=== PATIENT | male | born 1950 | race Caucasian/White ===

== ENCOUNTER 2017-02-20 22:51 | Inpatient (IN) | payer MEDICARE, OTHER ==
[2017-02-20] MEDS ORDERED: ONDANSETRON HCL/PF 4 MG/ 2ML VIAL IVP ONE (23:20)
[2017-02-20] MEDS ORDERED: FOLIC ACID 5 MG/1 ML ONE (23:21)
[2017-02-20] MEDS ORDERED: 0.9 % SODIUM CHLORIDE 1,000 ML IV ONE (23:21)
[2017-02-20] MEDS ORDERED: MVI, ADULT NO.1 WITH VIT K 10 ML VIAL IV ONE (23:21)
[2017-02-20] MEDS ORDERED: THIAMINE HCL 100 MG/ML 2ML VIAL ONE (23:21)
[2017-02-20] MEDS ORDERED: THIAMINE HCL 100 MG, MVI, ADULT NO.1 WITH VIT K 10 ML, FOLIC ACID 5 MG in 0.9 % SODIUM ... IV ONE ×4 (23:22)
[2017-02-20] MEDS ORDERED: HYDROmorphone HCL/PF 1 MG/ML DISP.SYRIN IVP ONE (23:23)
[2017-02-20 23:37] LABS: BASOPHILS % 0.6 (0.0-1.5); MEAN CORPUSCULAR HEMOGLOBIN 31.3 pg (28.0-34.0); MEAN CORPUSCULAR VOLUME 94.8 fl (80.0-100.0); MONOCYTES % 8.3 % (0.0-11.0)
[2017-02-20 23:49] LABS: eGFR (African) > 60; eGFR (Non-African) > 60
[2017-02-21] MEDS ORDERED: HYDROmorphone HCL/PF 1 MG/ML DISP.SYRIN IVP ONE ×3 (00:03→06:30)
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
[2017-02-21] MEDS: HYDROmorphone HCL/PF 1 MG/ML DISP.SYRIN IVP PRN ×6 (02:15→23:00)
[2017-02-21] MEDS ORDERED: HYDROmorphone HCL/PF 2 MG/ML DISP.SYRIN ONE ×5 (02:16→19:09)
[2017-02-21] MEDS: DEXTROSE 5 %-0.45 % NACL 1,000 ML IV SCH ×3 (02:20→17:26)
--- NOTE | 2017-02-21 02:49 | Diagnostic Imaging Report ---
MALIHA JACKSON~ [facility] [id number] [facility] [address] [place], [place]. [address] ~ ~ ~ ~ Report Submission Date: Feb 21, 2017 1:09:40 AM CDT Patient ~ Study Name: RUBENS STEPHENSON ~ Date: Feb 21, 2017 12:27:20 AM CDT ~ Modality Type: CT\SR Gender: M ~ Description: CT ABD & PELVIS W/ CON : 52 ~ Institution: [facility] Physician: MALIHA JACKSON ~ ~ ~ ~ Examination: CT Abdomen/pelvis History: Abdominal discomfort. History of chronic pancreatitis. Comparison exams: None available Technique: CT Abdomen/pelvis with IV protocol.~ Findings:~ Liver, spleen, adrenals, and~gallbladder are without gross irregularity.~ No abnormal enhancement. Left renal scarring and bilateral cortical cysts. Pancreas demonstrates numerous calcifications involving the head of the pancreas. ~Dilation of the intra pancreatic duct to 5 mm. Minimal peripancreatic mesenteric stranding involving the head of the pancreas. ~Loop of the distal duodenum demonstrates air fluid level just inferior to the pancreatic head. Body and tail of the pancreas are without adjacent inflammatory changes. Bowel unopacified limiting evaluation. Remaining bowel without abnormal dilation adjacent inflammatory changes. Stool within the large bowel limiting sensitivity. No other mesenteric inflammatory changes or free fluid. Abdominal aorta with atherosclerotic disease. No aneurysm. Osseous structures demonstrate degenerative changes.. Lung bases with scarring and atelectasis.~ Impression: Chronic pancreatitis with region of acute inflammation around the pancreatic head. ~ Electronically signed on Feb 21, 2017 1:09:40 AM CDT by: David ECHAVARRIA
[2017-02-21 02:59] VITALS: BMI 32.1
[2017-02-21] MEDS: LORazepam 2 MG/ML VIAL IVP PRN ×4 (04:07→17:25)
[2017-02-21] MEDS ORDERED: LEVOTHYROXINE SODIUM 100 MCG TABLET PO ONE (04:38)
[2017-02-21 05:45] LABS: APPEARANCE,URINE CLEAR (CLEAR); COLOR,URINE YELLOW (YELLOW); OCCULT BLOOD,URINE NEGATIVE (NEGATIVE); PH URINE 5.5 (5.0 - 8.0); UROBILINOGEN URINE 0.2 Eu (0.2-1.0)
[2017-02-21] MEDS: LEVOTHYROXINE SODIUM 100 MCG TABLET PO SCH (06:10)
[2017-02-21] MEDS ORDERED: LEVOTHYROXINE SODIUM 100 MCG TABLET PO SCH ×2 (07:00→09:00)
[2017-02-21] MEDS: ATORVASTATIN CALCIUM 80 MG TABLET PO SCH (08:37)
[2017-02-21] MEDS: amLODIPine BESYLATE 5 MG TABLET PO SCH (08:38)
[2017-02-21] MEDS: METOPROLOL TARTRATE 50 MG TABLET PO SCH ×2 (08:38→19:17)
[2017-02-21] MEDS: SERTRALINE HCL 50 MG TABLET PO SCH (08:39)
[2017-02-21] MEDS: LISINOPRIL 20 MG TABLET PO SCH ×2 (08:39→19:17)
[2017-02-21] MEDS ORDERED: LISINOPRIL 20 MG TABLET PO SCH (09:00)
--- NOTE | 2017-02-21 09:01 | History and Physical Report ---
History of Present Illnes - History of Present Illness Reason for Visit: Abdominal pain History of Present Illness: Patient admitted from [facility] for pancreatitis. He has a 51 year history of alcoholism and has been in 9 different treatment facilities in the past 16 months ([facility] x 2, [facility] X 2, [place] x 2, several hospitals). He reports being told on by his physician while in the hospital if he doesn't quit drinking he will within a year. He got out of treatment in [place] on 02-15-17. Started drinking again on 02-17-17 and drank until coming to [facility] yesterday. BAL last night was 125 in the ER. Has had a h/o seizures from withdraw years ago. This abdominal pain gets worse when he stops drinking. He feels alcohol makes the pain better. He knows his pancreas is affected as he has had pancreatitis off and on all year. Reports CT's have shown 'fatty liver, spots on kidneys, and crystalized pancreas." Thought he had gout in L leg this week - stopped at Urgent Care - work up negative, including u/s for DVT. - Past Medical History Cardiac: HTN, Hyperlipidemia, Other (pacemaker - AV node) Gastrointestinal: GERD, Peptic ulcer disease (Esophageal ulcer) Heme/Onc: Cancer (Hodkin's lymphoma at 29 y.o.) Psych: Addictions (alcohol), Depression Endocrine: Hypothyroidism - Past Surgical History Past Surgical History: Other (Exploratory lap -Hodgin's at 29 y.o. - splenectomy ), Total Knee Replacement (R), Other (pacemaker x 2; R achilles tendon repair) - Past Family History Mother Family History: Other (Etoh) Father Family History: Hypertension, Other (Etoh) Brother 1 Family History: Hyperlipidemia - Past Social History Smoke: No Alcohol: Heavy Drugs: None Lives: Alone ( lives separately with 18 yo and 16 yo children.) - Health Maintenance Health Maintenance: Pneumococcal Vaccine (Hasn't gotten again as it made it him sick.) Influenza Vaccine: No Pneumonia Vaccine: Yes Resuscitation Status: Resusciation Status Resuscitation Status Full Code Review of Systems - Review of Systems Constitutional: negative: Weakness Eyes: negative: pain ENT: negative: Ear Pain Respiratory: negative: Cough, Shortness of Breath Cardiovascular: negative: Chest Pain Gastrointestinal: Abdominal Pain. negative: Nausea, Diarrhea, Constipation Genitourinary: negative: Dysuria Musculoskeletal: negative: Neck Pain Skin: negative: Rash Neurological: Weakness - Medications/Allergies Allergies/Adverse Reactions: Allergies Allergy/AdvReac Type Severity Reaction Status Date / Time Penicillins Allergy Severe Rash Verified 02/20/17 23:10 Home Medications: Home Medications Atorvastatin Calcium [Atorvastatin Calcium] 80 mg PO D 02/20/17 Enalapril Maleate [Vasotec] 20 mg PO BID 02/20/17 Levothyroxine Sodium [Unithroid] 100 mcg PO D 02/20/17 Metoprolol Tartrate [Lopressor] 50 mg PO BID 02/20/17 Prednisolone Acetate [Pred Forte 1% Opth Susp] 1 - 2 drop RIGHTEYE DIRECTED PRN 02/20/17 Sertraline HCl [Zoloft] 100 mg PO D 02/20/17 amLODIPine BESYLATE [Norvasc] 10 mg PO D 02/20/17 Current Inpatient Medications: Current Inpatient Medications Amlodipine Besylate (Norvasc) 10 mg PO D [facility] Atorvastatin Calcium (Lipitor) 80 mg PO D [facility] Hydromorphone HCl (Dilaudid) 2 mg IVP Q4H PRN PRN Reason: PAIN Hydromorphone HCl (Dilaudid) 1 mg IVP NOW ONE Stop: 02/21/17 06:31 Last Admin: 02/21/17 06:38 Dose: 1 mg Dextrose/Sodium Chloride (D51/2ns) 1,000 mls @ 125 mls/hr IV Q10H [facility] Last Admin: 02/21/17 02:20 Dose: Not Given Levothyroxine Sodium (Synthroid) 100 mcg PO 0700 [facility] Last Admin: 02/21/17 06:10 Dose: 100 mcg Lisinopril (Prinivil) 40 mg PO BID [facility] Stop: 02/26/17 23:59 Lorazepam (Ativan) 2 mg IVP Q4 PRN PRN Reason: Alcohol Withdrawal Last Admin: 02/21/17 04:07 Dose: 2 mg Metoprolol Tartrate (Lopressor) 50 mg PO BID [facility] Sertraline HCl (Zoloft) 100 mg PO D [facility] Exam - Exam Vital Signs: Vital Signs (72 hours) 02/21/17 02/21/17 02:04 06:04 Temperature 98.4 F 97.4 F L Pulse Rate [ 91 H 88 Right Pulse ox] Respiratory 18 16 Rate Blood Pressure 176/98 178/101 [Right Arm] O2 Sat by Pulse 96 95 Oximetry General: Alert, Oriented to Person, Oriented to Place, Oriented to Time, Cooperative, No acute distress HEENT: Atraumatic, PERRLA, EOMI, Mouth Mucous membr. moist/[place], Nose Mucous membr. moist/[place] Neck: Normal Range of Motion Lungs: Clear to auscultation, Normal air movement, Speaks full Sentences Cardiovascular: Regular rate Abdomen: Normal bowel sounds, Soft, No tenderness Integumentary: Normal Extremities: Other (B legs with edema. R>L. 2+ pulse. ) Neurological: Normal gait, Normal speech, Strength Equal Bilat, Normal tone Psych/Mental Status: Mental status NL, Mood NL, Appropriate Affect, Intact Judgment Assessment/Plan - Assessment/Plan (1) Alcoholism Status: Acute Current Visit: Yes Plan: We will do severity assessments with IV ativan. Watch patient closely. Due to all the detox he has had recently with periods of sobriety I think he is low risk of seizure so will hold off prophylaxis. Hope to discharge back to [facility] but I am concerned about his chronic abdominal pain - will be unable to take chronic pain meds there. He is interested in a residential house in [place], [place]. (2) HTN (hypertension) Status: Acute Current Visit: Yes Plan: Cont. BP meds. Lisinopril to replace enalapril. (3) Depression with anxiety Status: Acute Current Visit: Yes Plan: Cont. sertraline. (4) Acute on chronic pancreatitis Status: Acute Current Visit: Yes Plan: Suspect due to alcohol based on what patient has told me. Keep patient NPO except meds and ice chips. IV diluadid for pain. Suspect pain will be chronic due to all the damage he has done to his pancreas. VTE Assessment - RISK FACTOR SCORE VTE RISK FACTOR SCORES: AGE OVER 60 YEARS, ANTICIPATED BED CONFINEMENT OR IMMOBILIZATION > 24 HOURS - RISK VTE MODERATE RISK: SCORE OF 2 (RISK PROXIMAL DVT 2-4%) PROPHYAXIS NEEDED
[2017-02-21] MEDS ORDERED: 0.9 % SODIUM CHLORIDE 1,000 ML IV ONE (10:04)
[2017-02-21] MEDS ORDERED: HYDROXYZINE HCL 25 MG TABLET PO PRN (17:54)
[2017-02-21] MEDS ORDERED: SALINE FLUSH 10 ML DISP.SYRIN IVF ONE ×2 (19:09→22:42)
[2017-02-21] MEDS ORDERED: MORPHINE SULFATE 2 MG/ML DISP.SYRIN ONE (22:42)
[2017-02-22] MEDS: DEXTROSE 5 %-0.45 % NACL 1,000 ML IV SCH ×3 (01:51→20:17)
[2017-02-22] MEDS: HYDROmorphone HCL/PF 1 MG/ML DISP.SYRIN IVP PRN ×6 (02:55→20:50)
[2017-02-22] MEDS ORDERED: SALINE FLUSH 10 ML DISP.SYRIN IVF ONE ×3 (02:56→20:34)
[2017-02-22] MEDS ORDERED: MORPHINE SULFATE 2 MG/ML DISP.SYRIN ONE ×2 (02:56→06:39)
[2017-02-22] MEDS: LEVOTHYROXINE SODIUM 100 MCG TABLET PO SCH (05:42)
[2017-02-22 06:56] LABS: BASOPHILS % 0.4 (0.0-1.5); EOSINOPHILS % 1.6 % (0.0-6.8); MEAN CORPUSCULAR VOLUME 95.7 fl (80.0-100.0); MONOCYTES % 6.7 % (0.0-11.0); NEUTROPHILS # 5.3 # k/uL (1.4-7.7)
[2017-02-22] MEDS: FOLIC ACID 1 MG TABLET PO SCH (08:42)
[2017-02-22] MEDS: LISINOPRIL 20 MG TABLET PO SCH ×2 (08:43→20:18)
[2017-02-22] MEDS: amLODIPine BESYLATE 5 MG TABLET PO SCH (08:43)
[2017-02-22] MEDS: ATORVASTATIN CALCIUM 80 MG TABLET PO SCH (08:43)
[2017-02-22] MEDS: SERTRALINE HCL 50 MG TABLET PO SCH (08:43)
[2017-02-22] MEDS: THIAMINE HCL 100 MG TABLET PO SCH (08:43)
[2017-02-22] MEDS: METOPROLOL TARTRATE 50 MG TABLET PO SCH ×2 (08:43→20:18)
[2017-02-22 09:04] LABS: eGFR (African) > 60; eGFR (Non-African) > 60
--- NOTE | 2017-02-22 10:23 | Inpatient Progress Note ---
Subjective - Required Recertification Statement I anticipate X number of days because-include discharge plan: 1 - Review of Systems Subjective: Patient continues to manipulate nursing. Accuses them of not giving IV antivan or diluadid and diluting it. Tries to bargain with nurses to give meds early. Reports still bad abdominal pain and "the [facility] gave me dilaudid 2 mg every 2 hours." Then he asks me "What is the prognosis?" I asked him what he was told 3 weeks ago - to which he replies, "If I don't stop drinking I'll be in a year." I pointed out that he hasn't quit drinking so the prognosis has only worsened. Objective - Exam Vitals and I&O: Vital Signs Temp 97.4 F L 02/22/17 06:00 Pulse 80 02/22/17 06:00 Resp 16 02/22/17 06:00 BP 169/78 02/22/17 06:00 Pulse Ox 94 02/22/17 06:00 Intake & Output 02/21/17 02/21/17 02/22/17 11:59 23:59 11:59 Intake Total 264 828 9213 Output Total 300 300 700 Balance 550 -180 2300 Weight 98.883 kg Intake: IV 850 3000 Left Antecubital 850 3000 Oral 120 Output: Urine 300 300 700 Other: Voiding Method Toilet Toilet # Voids 1 1 General: Alert, Oriented to Person, Oriented to Place, Oriented to Time, Cooperative, No acute distress Lungs: Clear to auscultation, Normal air movement, Speaks full Sentences Abdomen: Normal bowel sounds. No: No tenderness (Tender diffusely.) - Results Results: Laboratory Results WBC 7.20 K/ul (4.00-12.00) 02/22/17 06:50 RBC 4.13 M/ul (3.90-5.20) 02/22/17 06:50 Hgb 12.8 g/dL (12.0-18.0) 02/22/17 06:50 Hct 39.5 % (37.0-53.0) 02/22/17 06:50 MCV 95.7 fl (80.0-100.0) 02/22/17 06:50 MCH 31.0 pg (28.0-34.0) 02/22/17 06:50 MCHC 32.4 g/dL (30.0-36.0) 02/22/17 06:50 RDW 14.3 % (11.3-14.3) 02/22/17 06:50 Plt Count 310 K/mm3 (130-400) 02/22/17 06:50 Neut % (Auto) 73.3 % (39.0-79.0) 02/22/17 06:50 Lymph % (Auto) 17.1 % (16.0-50.0) 02/22/17 06:50 [place] % (Auto) 6.7 % (0.0-11.0) 02/22/17 06:50 Eos % (Auto) 1.6 % (0.0-6.8) 02/22/17 06:50 Baso % (Auto) 0.4 (0.0-1.5) 02/22/17 06:50 Neut # (Auto) 5.3 # k/uL (1.4-7.7) 02/22/17 06:50 Lymph # (Auto) 1.2 # k/uL (0.6-4.0) 02/22/17 06:50 [place] # (Auto) 0.5 # k/uL (0.0-0.9) 02/22/17 06:50 Eos # (Auto) 0.1 # k/uL (0.0-0.6) 02/22/17 06:50 Baso # (Auto) 0.0 # k/uL (0.0-0.5) 02/22/17 06:50 Reactive Lymphs % 1.0 % (0.0-5.0) 02/22/17 06:50 Reactive Lymphs # 0.1 # k/uL (0.0-0.8) 02/22/17 06:50 Sodium 139 mmol/L (136-145) 02/22/17 06:50 Potassium 4.0 mmol/L (3.5-5.0) 02/22/17 06:50 Chloride 107 mmol/L (98-110) 02/20/17 23:31 Carbon Dioxide 25 mmol/L (20-32) 02/22/17 06:50 BUN 11 mg/dL (10-26) 02/22/17 06:50 Creatinine 0.9 mg/dL (0.4-1.5) 02/22/17 06:50 Estimated Creat Clear 114 02/22/17 06:50 Est GFR ( Amer) > 60 (60-) 02/22/17 06:50 Est GFR (Non-Af Amer) > 60 (60-) 02/22/17 06:50 Glucose 122 mg/dL (70-99) H 02/22/17 06:50 Calcium 8.7 mg/dL (8.5-10.5) 02/22/17 06:50 Total Bilirubin 0.6 mg/dL (0.2-1.2) 02/22/17 06:50 AST 23 U/L (0-41) 02/22/17 06:50 ALT 23 U/L (0-45) 02/22/17 06:50 Alkaline Phosphatase 93 U/L (46-116) 02/22/17 06:50 Total Protein 6.5 g/dL (6.0-8.5) 02/22/17 06:50 Albumin 3.8 g/dL (3.0-5.5) 02/22/17 06:50 Amylase 138 U/L (20-104) H 02/20/17 23:31 Urine Color Yellow (YELLOW) 02/21/17 01:30 Urine Appearance Clear (CLEAR) 02/21/17 01:30 Urine pH 5.5 (5.0 - 8.0) 02/21/17 01:30 Ur Specific [place] 1.010 (1.010-1.030) 02/21/17 01:30 Urine Protein Negative mg/dL (NEGATIVE) 02/21/17 01:30 Urine Ketones Negative mg/dL (NEGATIVE) 02/21/17 01:30 Urine Occult Blood Negative (NEGATIVE) 02/21/17 01:30 Urine Nitrite Negative (NEGATIVE) 02/21/17 01:30 Urine Bilirubin Negative (NEGATIVE) 02/21/17 01:30 Urine Urobilinogen 0.2 Eu (0.2-1.0) 02/21/17 01:30 Ur Leukocyte Esterase Negative (NEGATIVE) 02/21/17 01:30 Urine Glucose Negative mg/dL (NEGATIVE) 02/21/17 01:30 Ethyl Alcohol 125.0 MG/DL (<10.0) H 02/20/17 23:56 Assessment/Plan - Assessment/Plan (1) Alcoholism Status: Acute Current Visit: Yes (2) HTN (hypertension) Status: Acute Current Visit: Yes (3) Depression with anxiety Status: Acute Current Visit: Yes (4) Acute on chronic pancreatitis Status: Acute Current Visit: Yes Plan: Patient has poor prognosis in that he continues to have significant pain and I believe unwilling to stop drinking. Will increase dilaudid to 2 mg every 3 hours. Keep NPO.
[2017-02-22] MEDS ORDERED: HYDROmorphone HCL/PF 2 MG/ML DISP.SYRIN ONE ×5 (11:19→23:56)
[2017-02-23] MEDS: HYDROmorphone HCL/PF 1 MG/ML DISP.SYRIN IVP PRN ×2 (00:22→04:27)
[2017-02-23] MEDS ORDERED: SALINE FLUSH 10 ML DISP.SYRIN IVF ONE (04:20)
[2017-02-23] MEDS ORDERED: HYDROmorphone HCL/PF 2 MG/ML DISP.SYRIN ONE (04:20)
[2017-02-23] MEDS: DEXTROSE 5 %-0.45 % NACL 1,000 ML IV SCH (04:27)
[2017-02-23 06:16] VITALS: BP 113/57
[2017-02-23] MEDS: LEVOTHYROXINE SODIUM 100 MCG TABLET PO SCH (06:24)
--- NOTE | 2017-02-23 08:16 | Discharge Summary ---
Discharge Summary - Discharge Sumary History of Present Illness: Patient admitted from [facility] for pancreatitis. He has a 51 year history of alcoholism and has been in 9 different treatment facilities in the past 16 months ([facility] x 2, [facility] X 2, [facility] x 2, several hospitals). He reports being told on by his physician while in the hospital if he doesn't quit drinking he will within a year. He got out of treatment in [place] on 02-15-17. Started drinking again on 02-17-17 and drank until coming to [facility] yesterday. BAL last night was 125 in the ER. Has had a h/o seizures from withdraw years ago. This abdominal pain gets worse when he stops drinking. He feels alcohol makes the pain better. He knows his pancreas is affected as he has had pancreatitis off and on all year. Reports CT's have shown 'fatty liver, spots on kidneys, and crystalized pancreas." Thought he had gout in L leg this week - stopped at Urgent Care - work up negative, including u/s for DVT. Condition at Discharge: Stable Home Medications: Ambulatory Orders Medication Instructions Recorded Atorvastatin Calcium 80 mg PO D 02/20/17 Enalapril Maleate [Vasotec] 20 mg PO BID 02/20/17 Levothyroxine Sodium [Unithroid] 100 mcg PO D 02/20/17 Metoprolol Tartrate [Lopressor] 50 mg PO BID 02/20/17 Prednisolone Acetate [Pred Forte 1 - 2 drop RIGHTEYE DIRECTED PRN 02/20/17 1% Opth Susp] Sertraline HCl [Zoloft] 100 mg PO D 02/20/17 amLODIPine BESYLATE [Norvasc] 10 mg PO D 02/20/17 Consultations this Visit: None Procedures this Visit: None Allergies/Adverse Reactions: Allergies Allergy/AdvReac Type Severity Reaction Status Date / Time Penicillins Allergy Severe Rash Verified 02/20/17 23:10 Patient Problems: Current Active Problems Problem Status Onset Acute on chronic pancreatitis Acute Alcoholism Acute Depression with anxiety Acute HTN (hypertension) Acute Discharge Summary: Patient was admitted with abdominal pain that he told me was there since 08/15. Has been in and out of hospitals with chronic pancreatitis. Reports it got worse after he quit drinking. Labs remained stable during hospitalization. CT showed pancreas inflammation. Patient never scored on severity assessments but wanted ativan every 4 hours IV. Accused nurses of not giving it to him or diluting it down. I witnessed administration one time when he accused them of not giving it to him. He wanted his dilaudid more often than was given - got very belligerent with nursing - cursing and demanding more. Tried to beg them and "sweet talk" them into giving him more or before it was time. Didn't want to be "cut off cold turkey" from the dilaudid. While patient was NPO for the pancreatitis, he was found in the kitchenette sneaking juice and peanut butter crackers. Demanded food. Due to his good appetite and stable condition, he was discharged back to [facility] in good condition. Hospital Course: Discharge Dx: Acute on chronic pancreatitis. Alcoholism. HTN. Disposition: [facility]
[2017-02-23] MEDS: FOLIC ACID 1 MG TABLET PO SCH (08:59)
[2017-02-23] MEDS: ATORVASTATIN CALCIUM 80 MG TABLET PO SCH (08:59)
[2017-02-23] MEDS: METOPROLOL TARTRATE 50 MG TABLET PO SCH (09:00)
[2017-02-23] MEDS: amLODIPine BESYLATE 5 MG TABLET PO SCH (09:00)
[2017-02-23] MEDS: THIAMINE HCL 100 MG TABLET PO SCH (09:01)
[2017-02-23] MEDS: LISINOPRIL 20 MG TABLET PO SCH (09:01)
[2017-02-23] MEDS: SERTRALINE HCL 50 MG TABLET PO SCH (09:02)
== END 2017-02-23 08:50 | disposition home or self-care (01) | DRG 440 ==
LOC: ED 22:51 → SOUTH 02-21 02:00
PROVIDERS: ADMIT Family Medicine; ATTEND Family Medicine
DX: K85.90 Acute pancreatitis without necrosis or infection, unspecified (principal); K86.1 Other chronic pancreatitis; F10.20 Alcohol dependence, uncomplicated; I10 Essential (primary) hypertension
CPT/HCPCS: 36415; 74177; 80053; 81002; 82150; 85025; G0480; J1170; J2060; J2270; J2405; J3411; J3490; J7030; Q9966; 80320; S1016; S5010